=== PATIENT | female | born 1975 | race African-American/Black ===

== ENCOUNTER 2019-03-19 18:23 | Emergency (ER) | payer SELFPAY ==
[~2019-03-19] VITALS: Ht 160 cm; Wt 75.0 kg
[2019-03-19] MEDS ORDERED: METHOCARBAMOL 500MG TABLET PO ONE (20:30)
[2019-03-19] MEDS ORDERED: KETOROLAC 30MG/ML VIAL IM ONE (20:30)
[2019-03-19 21:30] VITALS: BP 129/55
== END 2019-03-19 21:33 | disposition home or self-care (01) ==
LOC: ER 18:23
DX: M54.2 Cervicalgia (principal); V43.52XA Car driver injured in collision with other type car in traffic accident, initial encounter; Y93.89 Activity, other specified; Y92.488 Other paved roadways as the place of occurrence of the external cause
CPT/HCPCS: 81025; 96372; 99283; J1885